=== PATIENT | female | born 1955 | race Caucasian/White ===

== ENCOUNTER 2025-07-16 09:54 | Outpatient (CLI) | payer MEDICARE ==
[2025-07-16 10:26] LABS: Calc. Creatinine Clearance 0.0 mL/min (70-130)
[2025-07-16] MEDS ORDERED: Iopamidol 370 76% 100 ML VIAL ONE (15:18)
== END 2025-07-16 09:55 | disposition home or self-care (01) ==
LOC: BURCT 09:54
PROVIDERS: ATTEND Nurse Practitioner Family
DX: Z01.818 Encounter for other preprocedural examination (principal); K57.92 Diverticulitis of intestine, part unspecified, without perforation or abscess without bleeding; R16.0 Hepatomegaly, not elsewhere classified; E27.9 Disorder of adrenal gland, unspecified
CPT/HCPCS: 36415; 74177; 82565; Q9967